=== PATIENT | female | born 1955 | race African-American/Black ===

== ENCOUNTER 2019-06-06 06:12 | Emergency (ER) | payer MEDICAID, OTHER ==
[~2019-06-06] VITALS: Ht 154.9 cm; Wt 52.0 kg
[2019-06-06] MEDS ORDERED: KETOROLAC 60MG/2ML VIAL IM ONE (09:45)
[2019-06-06] MEDS ORDERED: DEXAMETHASONE 10 MG/ML VIAL IM ONE (09:45)
[2019-06-06] MEDS ORDERED: ACETAMINOPHEN 325MG TABLET PO ONE (09:45)
[2019-06-06 11:10] VITALS: BP 147/89
[2019-06-06] MEDS ORDERED: HYDROMORPHONE HCL/PF 2MG/ML CPJ IV PRN (11:30)
== END 2019-06-06 11:29 | disposition home or self-care (01) ==
LOC: ER 06:12
DX: M54.5 Low back pain (principal); R11.0 Nausea; I10 Essential (primary) hypertension; R63.0 Anorexia; Z68.21 Body mass index [BMI] 21.0-21.9, adult; F17.210 Nicotine dependence, cigarettes, uncomplicated; Z71.6 Tobacco abuse counseling
CPT/HCPCS: 96372; 99283; 99406; J1100; J1885